=== PATIENT | male | born 1995 | race American Indian/Alaskan Native ===

== ENCOUNTER 2021-02-13 16:11 | Emergency (ER) | payer OTHER ==
[2021-02-13 16:59] VITALS: BP 124/84
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
== END 2021-02-13 20:30 | disposition home or self-care (01) ==
LOC: ED 16:11
DX: M54.5 Low back pain (principal); M79.601 Pain in right arm; R07.81 Pleurodynia; J45.909 Unspecified asthma, uncomplicated; Z79.899 Other long term (current) drug therapy; V49.59XA Passenger injured in collision with other motor vehicles in traffic accident, initial encounter; Y92.410 Unspecified street and highway as the place of occurrence of the external cause; Y93.89 Activity, other specified; Y99.8 Other external cause status
CPT/HCPCS: 71046; 72100